=== PATIENT | male | born 1960 ===

== ENCOUNTER → 2021-06-11 13:46 | Outpatient (BNVA) | payer OTHER, SELFPAY | PROVIDERS: PCP Internal Medicine; Visit Provider Psychiatry & Neurology Neurology | DX: M54.2 Cervicalgia (principal); R51.9 Headache, unspecified; G89.29 Other chronic pain | CPT/HCPCS: 99212 ==

== ENCOUNTER → 2021-06-30 09:47 | Outpatient (BNVA) | payer OTHER, SELFPAY | PROVIDERS: PCP Internal Medicine; Visit Provider Internal Medicine | DX: M54.2 Cervicalgia (principal); M79.18 Myalgia, other site; R51.9 Headache, unspecified; G89.29 Other chronic pain | CPT/HCPCS: 99202 ==

== ENCOUNTER → 2022-06-05 09:46 | Outpatient (BNVA) | payer OTHER, SELFPAY | PROVIDERS: PCP Internal Medicine; Visit Provider Internal Medicine | DX: M79.18 Myalgia, other site (principal); M54.12 Radiculopathy, cervical region; M25.531 Pain in right wrist; M54.81 Occipital neuralgia; S16.1XXA Strain of muscle, fascia and tendon at neck level, initial encounter; G44.309 Post-traumatic headache, unspecified, not intractable; F09 Unspecified mental disorder due to known physiological condition; R53.1 Weakness; R20.0 Anesthesia of skin | CPT/HCPCS: 20553; 99212; J2795; J3301 ==

== ENCOUNTER → 2022-06-19 08:38 | Outpatient (BNVA) | payer OTHER, SELFPAY | PROVIDERS: PCP Internal Medicine; Visit Provider Internal Medicine | DX: Z13.89 Encounter for screening for other disorder (principal) ==

== ENCOUNTER 2022-06-29 10:49 | Outpatient (REF) | payer OTHER, SELFPAY ==
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
--- NOTE | ~2022-06-29 | XR_ITS ---
EXAMINATION: XR [id number] SCREENING CLINICAL INFORMATION: Pre-MRI screening. COMPARISON: None TECHNIQUE: 3 views of the orbits were obtained. FINDINGS: No radiopaque foreign body. No acute osseous abnormality. No concerning lytic or blastic osseous lesion. No abnormal soft tissue calcification. XR/XR pre mri screening IMPRESSION: No radiopaque foreign body.
== END 2022-06-29 10:50 | disposition home or self-care (01) ==
LOC: HO.MRI 10:49
PROVIDERS: Visit Provider Internal Medicine
DX: M54.12 Radiculopathy, cervical region (principal)
CPT/HCPCS: 72141

== ENCOUNTER → 2022-07-01 12:45 | Outpatient (BNVA) | payer OTHER, SELFPAY | PROVIDERS: Visit Provider Orthopaedic Surgery | DX: R20.0 Anesthesia of skin (principal); R29.898 Other symptoms and signs involving the musculoskeletal system | CPT/HCPCS: 99202 ==

== ENCOUNTER 2022-07-17 11:15 | Outpatient (REF) | payer OTHER, SELFPAY ==
--- NOTE | ~2022-07-17 | US_ITS ---
EXAMINATION: US CHEST CLINICAL INFORMATION: Upper back lump. COMPARISON: None. TECHNIQUE: Targeted ultrasound examination. FINDINGS: Targeted ultrasound examination was performed where patient demonstrated a mid upper back right-sided mass. There is a solid slightly heterogeneous and hypoechoic to isoechoic well-circumscribed oval structure measuring 4.2 x 0.9 x 2.9 cm in size. There is no internal vascularity. The lesion is longer than it is wide. There is mild distal sound enhancement and no distal sound shadowing. This has the appearance of a lipoma. US/US chest IMPRESSION: Right upper back lump corresponds to a lipoma with no cystic component.
== END 2022-07-17 11:16 | disposition home or self-care (01) ==
LOC: HO.US 11:15
PROVIDERS: PCP Internal Medicine; Visit Provider Internal Medicine
DX: M79.89 Other specified soft tissue disorders (principal); M54.81 Occipital neuralgia; M79.18 Myalgia, other site; Z79.01 Long term (current) use of anticoagulants; Z79.899 Other long term (current) drug therapy
CPT/HCPCS: 76604; 99212

== ENCOUNTER → 2022-07-20 15:45 | Outpatient (BNVA) | payer OTHER, SELFPAY | PROVIDERS: Visit Provider Internal Medicine | DX: D17.1 Benign lipomatous neoplasm of skin and subcutaneous tissue of trunk (principal); M48.02 Spinal stenosis, cervical region; M54.81 Occipital neuralgia | CPT/HCPCS: 20552; 64405; 64450; 99212 ==

== ENCOUNTER 2022-08-06 16:06 | Outpatient (REF) | payer OTHER, SELFPAY ==
--- NOTE | ~2022-08-06 | US_ITS ---
EXAMINATION: US CHEST CLINICAL INFORMATION: Cyst right upper back. COMPARISON: None available. TECHNIQUE: Limited ultrasound imaging through the right upper back is performed. FINDINGS: There is a focal hypoechoic area without vascularity in the right upper back measuring 4.2 x 2.9 x 0.9 cm. There is no cystic consistency. It appears somewhat similar to surrounding fat. US/US chest IMPRESSION: Deep to subcutaneous soft tissues is a oval lesion measuring 4.2 cm corresponding to the patient's palpable lesion in right upper back. 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
== END 2022-08-06 16:07 | disposition home or self-care (01) ==
LOC: HO.US 16:06
PROVIDERS: Visit Provider Internal Medicine
DX: M79.89 Other specified soft tissue disorders (principal)
CPT/HCPCS: 76604

== ENCOUNTER → 2022-08-11 13:46 | Outpatient (BNVA) | payer OTHER, SELFPAY | PROVIDERS: PCP Internal Medicine; Visit Provider Surgery | DX: D17.1 Benign lipomatous neoplasm of skin and subcutaneous tissue of trunk (principal) | CPT/HCPCS: 99212 ==

== ENCOUNTER 2022-08-27 14:01 | Outpatient (REF) | payer OTHER, SELFPAY ==
--- NOTE | 2022-08-27 14:35 | P.OP_ITS ---
Operative Note Operative Note Date of Service: 08/27/22 Narrative: Preoperative diagnosis: Lipoma right back Postoperative diagnosis: same Procedure: excision of lipoma right back Surgeon: Talib Bhat MD Damage Inside Adjuster: none Anesthesia: Sensorcaine 0.5% with epinephrine Indications for procedure: 61-year-old male patient presenting with a soft tissue mass measuring 3 cm in diameter consistent with a lipoma located in the right mid back Operative findings: 3 cm lipoma of the right mid back Specimen: lipoma right mid back Estimated blood loss: 2 mL Complications: none Procedure details: patient was brought to the minor surgery suite placed in a supine position. The site of surgery was confirmed by the patient in the right mid back. After assuring informed consent the skin was prepped with Betadine and draped in a sterile fashion. Local anesthesia was infiltrated over the lipoma and an incision made with a 15 blade transverse fashion. Incision was carried out through subcutaneous tissue up to the palpable lipoma. Sharp dissection was then used to dissect the lipoma from the surrounding subcutaneous tissue. The lesion was completely excised and sent to pathology for further examination. Hemostasis was assured using light pressure. Dermis was then r eapproximated using interrupted 3-0 Polysorb sutures. Skin was closed using a running subcuticular 4-0 Polysorb suture. Steri-Strips, 2 x 2 gauze and Tegaderm were then applied. The patient tolerated the procedure well. He was discharged to home in stable condition.
[2022-08-27 14:46] VITALS: BP 134/72; PULSE 70; RESP 16; TEMP 36.9; O2SAT 98
[2022-08-27 14:47] VITALS: BMI 30.4
== END 2022-08-27 14:02 | disposition home or self-care (01) ==
LOC: HO.MS 14:01
PROVIDERS: Visit Provider Surgery
PROC: (CPT 11403; principal; 2022-08-27 14:40)
DX: D17.1 Benign lipomatous neoplasm of skin and subcutaneous tissue of trunk (principal)
CPT/HCPCS: 11403; 88304

== ENCOUNTER → 2022-09-03 09:47 | Outpatient (BNVA) | payer OTHER, SELFPAY | PROVIDERS: PCP Internal Medicine; Visit Provider Surgery | DX: L76.31 Postprocedural hematoma of skin and subcutaneous tissue following a dermatologic procedure (principal) | CPT/HCPCS: 10140; 99212 ==

== ENCOUNTER → 2022-09-11 08:54 | Outpatient (BNVA) | payer OTHER, SELFPAY | PROVIDERS: PCP Internal Medicine; Visit Provider Surgery | DX: Z13.89 Encounter for screening for other disorder (principal) ==

== ENCOUNTER 2022-09-16 14:00 | Outpatient (RCR) | payer OTHER, SELFPAY ==
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
--- NOTE | 2022-09-28 11:53 | MHC.OT.DC ---
[address] [phone] F: [phone] Occupational Therapy Discharge Note Patient Name: Honorio Calderon I Provider: Nette Meade Diagnosis: B/L HAND WEAKNESS AND NUMBNESS Date of Evaluation: 08/28/22 Date of Discharge: 09/28/22 Treatments to Date: 4 Cancellations to Date: 2 No Shows to Date: 3 Discharge Status: Patient Elected to Stop Discharge Summary: MR CALDERON WAS SEEN FOR FOUR OT RX SESSIONS. HE WAS PROVIDED WITH A PHONE RECORDING HEP TO INCREASE EASE AND CARRYOVER OF THER EX. HE DEMO IMPROVED ROM OF HAND, WELL COORDINATION DURING HIS TIME IN THERAPY - YET HE WAS SLOW AND GUARDED. Pt HAS ELECTED TO DISCONTINUE OT AT [facility]. Electronically Signed By: LULU JUARES/Anabela Reviewed/agree with student documentation: N/A Therapist: Please Sign and return to therapist, thank you for your referral.
== END 2022-09-28 11:50 | disposition home or self-care (01) ==
LOC: HO.OT 14:00
PROVIDERS: Visit Provider Orthopaedic Surgery
DX: R20.0 Anesthesia of skin (principal); R29.898 Other symptoms and signs involving the musculoskeletal system
CPT/HCPCS: 97110; 97167

== ENCOUNTER → 2022-09-25 10:57 | Outpatient (BNVA) | payer OTHER, SELFPAY | PROVIDERS: PCP Internal Medicine; Visit Provider Internal Medicine | DX: M79.18 Myalgia, other site (principal); M54.81 Occipital neuralgia; S16.1XXA Strain of muscle, fascia and tendon at neck level, initial encounter | CPT/HCPCS: 20552; 64405; 64450; 99212 ==

== ENCOUNTER → 2022-11-13 11:15 | Outpatient (BNVA) | payer OTHER, SELFPAY | PROVIDERS: PCP Internal Medicine; Visit Provider Registered Nurse Emergency | DX: M48.02 Spinal stenosis, cervical region (principal); M54.12 Radiculopathy, cervical region; M54.81 Occipital neuralgia | CPT/HCPCS: 99212 ==

== ENCOUNTER → 2022-11-20 11:38 | Outpatient (BNVA) | payer OTHER, SELFPAY | PROVIDERS: PCP Internal Medicine; Visit Provider Internal Medicine | DX: M79.18 Myalgia, other site (principal); M48.02 Spinal stenosis, cervical region; M54.81 Occipital neuralgia; S16.1XXA Strain of muscle, fascia and tendon at neck level, initial encounter | CPT/HCPCS: 20553; 64405; 64450; 99212; J2795; J3301 ==

== ENCOUNTER 2023-01-18 12:48 | Outpatient (AMB) | payer OTHER, SELFPAY ==
[2023-01-18 13:48] VITALS: BP 128/62; PULSE 65; RESP 14; O2SAT 99
--- NOTE | 2023-01-18 13:48 | A.OFFVIS_ITS ---
Intake Vital Signs 01/18/23 13:48 Height 5 ft 7 in BP 128/62 Blood Pressure Location Lt brachial Position Sitting Respiration 14 Pulse 65 Pulse Source Pulse Oximeter Pulse Oximetry (%) 99 Oxygen Delivery Method Room Air Intake Visit Reasons: botox discussion Allergies lisinopril Adverse Reaction (Severe, Verified 01/18/23 13:49) cough isosorbide Adverse Reaction (Intermediate, Verified 01/18/23 13:49) Cough Medication List - Last Reconciled 01/18/23 by Prema Phelps LPN acetaminophen 500 mg PO Q6H PRN ammonium lactate 12% 1 appl topical DAILY aspirin 81 mg PO DAILY budesonide-formoterol 160-4.5 mcg/actuation (Symbicort) 1 inh inhalation BID cetirizine 10 mg PO DAILY PRN clonazepam 0.5 mg PO BID PRN clonidine HCl 0.1 mg PO BEDTIME cyclobenzaprine 10 mg (2 x 5 mg) PO BEDTIME diclofenac sodium 1% (Arthritis Pain (diclofenac)) 2 grams topical QID diclofenac sodium 1% (Arthritis Pain (diclofenac)) 4 grams topical QID duloxetine 60 mg PO BID fluvoxamine ER 200 mg PO BEDTIME hydrochlorothiazide 25 mg PO DAILY levetiracetam 500 mg PO BID losartan 50 mg PO DAILY metformin 500 mg PO DAILY metoprolol succinate ER (Toprol XL) 50 mg PO DAILY pantoprazole 40 mg PO DAILY prazosin 2 mg PO BEDTIME pregabalin 150 mg PO TID sertraline 150 mg PO QAM sucralfate 1 g PO QID warfarin 5 mg PO 4XW warfarin 2.5 mg PO 3XW HPI botox discussion HPI Details 62-year-old male is presenting today for possible repeat trigger point injections. He reports pain in his mid-back region. He had an excision of a lipoma on 08/27/22 and tolerated the procedure well. He has been going for occupational therapy at [facility] and is interested in commencing physical therapy for his neck and back pain as well. He was turned down at [facility] due to lack of acceptance of worker's comp insurance. The patient reports two episodes of lightheadedness while standing up in recent weeks. He also reports occasional gait imbalance secondary to feeling lightheaded. He has been using Symbicort for the past two weeks and reports improvement in some chest symptoms that he had prior to that. He also reports pain in his bilateral hips that has responded well to trigger point injections in the past. He requests that the same be repeated today. He would also like to repeat trigger point injections to his neck and occipital nerve block in the future. 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 Past procedures: 11/20/22: Trigger point injections: >50% relief. 11/20/22: Greater and lesser occipital nerve block: >70% relief. 09/25/2022: Greater and Lesser Occipital Nerve Block, Bilateral: >80% relief for 2 weeks. 09/25/2022: Trigger point injections, lumbar paraspinal muscles: 50% relief for a few days 07/20/2022: Greater and Lesser Occipital Nerve Block, Bilateral: >80% relief for 2 weeks. 07/20/2022: Trigger point injections, lumbar paraspinal muscles: 50% relief for a few days. [facility] Medical History (Updated 01/18/23 @ 14:07 by Catrachito Covarrubias MD) Aortic aneurysm Bicuspid aortic valve Cervicalgia Chronic headaches Coronary artery disease Diabetes Diabetes with retinopathy Emphysema lung HTN (hypertension) Low back pain Myofascial pain dysfunction syndrome Obstructive sleep apnea Prostate cancer Seizures Surgical History Aortic valve replaced H/O heart surgery S/P excision of lipoma (08/27/22) Family History Mother No problems noted. Father No problems noted. Social History Alcohol intake: never Patient Tobacco Use Status: Former Tobacco user Quit Date: 1999 Current occupational status: employed Current occupation: patient transport/rt hand Review of Systems Const All systems reviewed & are unremarkable except as noted in HPI and below Physical Exam Vital Signs: Last Vital Signs Pulse 65 01/18/23 13:48 Resp 14 01/18/23 13:48 BP 128/62 01/18/23 13:48 Pulse Ox 99 01/18/23 13:48 Oxygen Delivery Method Room Air 01/18/23 13:48 General: Appears afebrile. Alert and oriented. Mood and affect appropriate. Follows and participates in conversation appropriately. Respiratory effort is unlabored. Able to transition from sit to stand unassisted. Ambulates with bilaterally normal heel strike and toe off. Office Procedures Injection Trigger Point Multi Trigger point injections, bilateral Pre-procedure diagnosis: Myofascial pain Post-procedure diagnosis: Myofascial pain Site and number of trigger points: latissimus dorsi and gluteus Medius, bilateral Solution: Total volume administered 10 ml (5 ml lidocaine 1% + 5 ml bupivacaine 0.25% + Kenalog 40 mg). The procedure, its benefits, and its risks were explained to the patient and all questions were answered. Prior to the start of the procedure, a ?time out? was performed to confirm correct patient, procedure, and laterality. Trigger points were identified by manual palpation and marked. The skin was cleaned with Chloraprep. A 1.5 inch 25 G needle was used. Each of the trigger points were approximated and elevated in the direction away from the body. Dry needling then took place for five seconds. Approximately 0.5 ml to 1 ml of injectate was delivered to the trigger point followed by dry needling for five seconds. This process was repeated at each trigger point site. The patient tolerated the procedure well. The patient tolerated the procedure well, without complication. The patient denied any numbness, paresthesias, or weakness. Post-procedure vitals were recorded as part of the nursing discharge note in electronic medical record. Following a period of observation, the patient was discharged in stable condition with written discharge instructions. Trigger Point Multiple: 61516- Trigger point injection =/>3 Results Reviewed Results Reviewed: No imaging is available for review. Assessment & Plan Assessment & Plan (1) Cervical spinal stenosis: Code(s): M48.02 - Spinal stenosis, cervical region (2) Intervertebral lumbar disc disorder: Code(s): M51.9 - Unspecified thoracic, thoracolumbar and lumbosacral intervertebral disc disorder (3) Lumbar spondylosis: Code(s): M47.816 - Spondylosis without myelopathy or radiculopathy, lumbar region Plan A referral was provided for physical therapy for neck and back pain. The patient will arrange appointment at [facility] on his own. The patient?s referral to the [facility] Neurosurgery Department was denied because they do not accept his insurance. A new referral was provided to the neurosurgery department at [facility] for further evaluation and discussion of possible surgical options with the patient upon his request. Patient is status post bilateral trigger point injections to his hips. Patient tolerated procedure well and was discharged home in stable condition with discharge instructions. All questions were answered. We will follow-up as needed for repeat trigger point injections. Scribed for Dr. Covarrubias by [place] medical services manager, on 01/18/2023. I, Dr. Covarrubias, have personally reviewed and agree with the information entered by the scribe. Orders: Orders PT Evaluation and Treatment 01/18/23 M47.816 - Spondylosis without myelopathy or radiculopathy, lumbar region, M48.02 - Spinal stenosis, cervical region, M51.9 - Unspecified thoracic, thoracolumbar and lumbosacral intervertebral disc disorder Referrals Neurosurgery Referral M48.02 - Spinal stenosis, cervical region Coding Level of Care Code Est Pt Level 4 (12799) Diagnoses Cervical spinal stenosis M48.02 Intervertebral lumbar disc disorder M51.9 Lumbar spondylosis M47.816 CPT Codes Details - Trigger Point Multiple: 65802- Trigger point injection =/>3 ([id number])
== END 2023-01-18 14:43 | disposition home or self-care (01) ==
PROVIDERS: PCP Internal Medicine; Visit Provider Internal Medicine
DX: M48.02 Spinal stenosis, cervical region (principal); M51.9 Unspecified thoracic, thoracolumbar and lumbosacral intervertebral disc disorder; M47.816 Spondylosis without myelopathy or radiculopathy, lumbar region
CPT/HCPCS: 20553; 99214

== ENCOUNTER → 2023-01-18 12:48 | Outpatient (BNVA) | payer OTHER, SELFPAY | PROVIDERS: PCP Internal Medicine; Visit Provider Internal Medicine | DX: M48.02 Spinal stenosis, cervical region (principal); M47.816 Spondylosis without myelopathy or radiculopathy, lumbar region; M51.9 Unspecified thoracic, thoracolumbar and lumbosacral intervertebral disc disorder | CPT/HCPCS: 20553; 99212; J3301 ==

== ENCOUNTER 2023-02-10 14:06 | Outpatient (REF) | payer OTHER, SELFPAY ==
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
== END 2023-02-10 14:07 | disposition home or self-care (01) ==
LOC: HO.NEURO 14:06
PROVIDERS: PCP Internal Medicine; Visit Provider Orthopaedic Surgery
DX: R20.0 Anesthesia of skin (principal); R20.2 Paresthesia of skin
CPT/HCPCS: 95886; 95911

== ENCOUNTER → 2023-02-10 14:09 | Outpatient (BNV) | payer OTHER, SELFPAY | PROVIDERS: PCP Internal Medicine; Visit Provider Physical Medicine & Rehabilitation | DX: R20.2 Paresthesia of skin (principal) | CPT/HCPCS: 95886; 95911 ==

== ENCOUNTER 2023-04-12 14:28 | Outpatient (AMB) | payer OTHER, SELFPAY ==
--- NOTE | 2023-04-12 14:30 | A.OFFVIS_ITS ---
Intake Vital Signs 04/12/23 14:31 Height 5 ft 7 in Weight 186 lb BMI 29.1 Blood Pressure Location Lt brachial Position Sitting Respiration 12 Pulse 75 Pulse Source Pulse Oximeter Pulse Oximetry (%) 98 Oxygen Delivery Method Room Air Intake Visit Reasons: increased pain questions about PT/conf Allergies lisinopril Adverse Reaction (Severe, Verified 04/12/23 14:32) cough isosorbide Adverse Reaction (Intermediate, Verified 04/12/23 14:32) Cough Medication List - Last Reconciled 04/12/23 by Prema Phelps LPN ammonium lactate 12% 1 appl topical DAILY aspirin 81 mg PO DAILY budesonide-formoterol 160-4.5 mcg/actuation (Symbicort) 1 inh inhalation BID cetirizine 10 mg PO DAILY PRN clonazepam 0.5 mg PO BID PRN clonidine HCl 0.1 mg PO BEDTIME cyclobenzaprine 10 mg (2 x 5 mg) PO BEDTIME duloxetine 60 mg PO BID fluvoxamine ER 200 mg PO BEDTIME levetiracetam 500 mg PO BID losartan 50 mg PO DAILY metformin 500 mg PO DAILY metoprolol succinate ER (Toprol XL) 50 mg PO DAILY pantoprazole 40 mg PO DAILY prazosin 2 mg PO BEDTIME sertraline 150 mg PO QAM sucralfate 1 g PO QID warfarin 5 mg PO 4XW warfarin 2.5 mg PO 3XW HPI increased pain questions about PT/conf HPI Details 62-year-old male who presents today to t he office for an evaluation of increased pain. He is not doing physical therapy due to a coverage denial from Worker [employer]. He reports pain in his neck and mid-back region. He has difficulty sleeping on his sides. He has pain in his arm. He reports occasional episodes of headaches. He has good relief from the last trigger point injection, he would like it repeated today. Past procedures: 01/18/23: Trigger point injections, bila teral: >50% relief. 11/20/22: Trigger point injections: >50% relief. 11/20/22: Greater and lesser occipital n erve block: >70% relief. 09/25/2022: Greater and Lesser Occipital Nerve Block, Bilateral: >80% relief for 2 weeks. 09/25/2022: Trigger point injections, sherrie mbar paraspinal muscles: 50% relief for a few days 07/20/2022: Greater and Lesser Occipital Nerve Block, Bilateral: >80% relief for 2 weeks. 07/20/2022: Trigger point injections, sherrie mbar paraspinal muscles: 50% relief for a few days. [facility] Medical History (Updated 04/12/23 @ 14:43 by Catrachito Covarrubias MD) Low back pain Myofascial pain dysfunction syndrome Coronary artery disease Prostate cancer Obstructive sleep apnea Seizures HTN (hypertension) Emphysema lung Diabetes with retinopathy Diabetes Bicuspid aortic valve Aortic aneurysm Chronic headaches Cervicalgia Surgical History Aortic valve replaced H/O heart surgery S/P excision of lipoma (08/27/22) Family History Mother No problems noted. Father No problems noted. Alcohol intake: never Patient Tobacco Use Status: Former Tobacco user Quit Date: 1999 Current occupational status: employed Current occupation: patient transport/rt hand Review of Systems Const All systems reviewed & are unremarkable except as noted in HPI and below Physical Exam Vital Signs: Last Vital Signs Pulse 75 04/12/23 14:31 Resp 12 04/12/23 14:31 Pulse Ox 98 04/12/23 14:31 Oxygen Delivery Method Room Air 04/12/23 14:31 BMI result Body Mass Index 29.1 General: Appears afebrile. Alert and oriented. Mood and affect appropriate. Follows and participates in conversation appropriately. Respiratory effort is unlabored. Able to transition from sit to stand unassisted. Ambulates with bilaterally normal heel strike and toe off. Office Procedures Injection Trigger Point Multi Pre-procedure diagnosis: Myofascial pain Post-procedure diagnosis: Myofascial pain Site and number of trigger points: Left trapezius, occipitalis, rhomboid. Solution: Total volume administered 10 ml (5 ml lidocaine 1% + 5 ml bupivacaine 0.25%). The procedure, its benefits, and its risks were explained to the patient and all questions were answered. A pulse oximeter monitor was attached and the patient was monitored throughout the procedure. Prior to the start of the procedure, a ?time out? was performed to confirm correct patient, procedure, and laterality. Trigger points were identified by manual palpation and marked. The skin was cleaned with Chloraprep. A 1.5 inch 25 G needle was used. Each of the trigger points were approximated and elevated in the direction away from the body. Dry needling then took place for five seconds. Approximately 0.5 ml to 1 ml of injectate was delivered to the trigger point followed by dry needling for five seconds. This process was repeated at each trigger point site. The patient tolerated the procedure well. The patient tolerated the procedure well, without complication. The patient denied any numbness, paresthesias, or weakness. Post-procedure vitals were recorded as part of the nursing discharge note in [facility] medical record. Following a period of observation, the patient was discharged in stable condition with written discharge instructions. Trigger Point Multiple: 13631- Trigger point injection =/>3 Nerve Block Details: Greater and Lesser Occipital Nerve Block, Left A physical exam was used to isolate the location of the targeted nerves. These injection sites were prepped with alcohol. Using a sterile technique, a 25 gauge 1.5-inch needle was introduced into each overlying nerve. A total of 3 mL 0.5% bupivacaine was injected around the left greater and lesser occipital nerves in a fan-like motion. Aspirations were negative for blood, CSF, and air prior to injection at all sites. The needle was removed, the skin cleansed and a sterile bandage was applied where needed. The patient tolerated the procedure well and no complications were encountered. Following the procedure the patient's vital signs were stable. He reported resolution of his preprocedure headache. The patient was discharged home in good condition with post-procedural instructions. Time Out: Immediately prior to the procedure, the following was verbally confirmed that there is a signed consent form and that the correct patient, planned procedure, site and side are consistent with documentation and that necessary equipment and/or blood products are available prior to the start of the case. Complications: none EBL: <5 cc. CPT: 04469-Eguhptj Occipital 18697 - Lesser Occipital Procedure code (CPT) selection complete Results Reviewed Results Reviewed: No imaging is available for review. Assessment & Plan Assessment & Plan (1) Dorsalgia of cervicothoracic region: Code(s): M54.2 - Cervicalgia; M54.6 - Pain in thoracic spine (2) Occipital neuralgia: Code(s): M54.81 - Occipital neuralgia (3) Cervical myofascial strain: Code(s): S16.1XXA - Strain of muscle, fascia and tendon at neck level, initial encounter Plan 62-year-old gentleman with a history of longstanding pain in his cervical and thoracic spine, exacerbated by his work injury. He is not a candidate for interventional procedures or surgical decompression. The only thing that he has been able to find helpful is physical therapy, and he would benefit from continued physical therapy to maintain and strengthen the mobility of his spinal musculature. A new referral was provided to the patient for physical therapy. ? Patient is status post left neck and shoulder trigger point injection and left occipital nerve block. Patient tolerated procedure well and was discharged home in stable condition with discharge instructions. All questions were answered. We will follow-up in clinic to assess response to therapy and repeat as needed. Scribed for Dr. Covarrubias by El Rayo, medical surgery nurse, on 04/12/2023. I, Dr. Covarrubias, have personally reviewed and agree with the information entered by the scribe. Orders: Orders PT Evaluation and Treatment 04/12/23 M48.02 - Spinal stenosis, cervical region, M54.2 - Cervicalgia, M54.6 - Pain in thoracic spine Coding Level of Care Code Est Pt Level 4 (68418) Diagnoses Dorsalgia of cervicothoracic region M54.2; M54.6 Occipital neuralgia M54.81 Cervical myofascial strain S16.1XXA CPT Codes Details - Trigger Point Multiple: 20571- Trigger point injection =/>3 ([id number]) Nerve Block - CPT: 01595-Pdupppu Occipital ([id number]) Nerve Block - Nerve Block 9: 33574 - Lesser Occipital ([id number])
[2023-04-12 14:31] VITALS: PULSE 75; RESP 12; O2SAT 98; BMI 29.1
== END 2023-04-12 14:51 | disposition home or self-care (01) ==
PROVIDERS: PCP Internal Medicine; Visit Provider Internal Medicine
DX: M54.2 Cervicalgia (principal); M54.81 Occipital neuralgia; S16.1XXA Strain of muscle, fascia and tendon at neck level, initial encounter
CPT/HCPCS: 20553; 64405; 64450; 99214

== ENCOUNTER → 2023-04-12 14:28 | Outpatient (BNVA) | payer OTHER, SELFPAY | PROVIDERS: PCP Internal Medicine; Visit Provider Internal Medicine | DX: M54.2 Cervicalgia (principal); M54.81 Occipital neuralgia; S16.1XXA Strain of muscle, fascia and tendon at neck level, initial encounter; M79.18 Myalgia, other site | CPT/HCPCS: 20553; 64405; 64450; 99212; J0665 ==

== ENCOUNTER 2023-06-04 10:30 | Outpatient (AMB) | payer OTHER, SELFPAY ==
--- NOTE | 2023-06-04 10:43 | A.OFFVIS_ITS ---
Intake Vital Signs 06/04/23 10:45 Height 5 ft 7 in Weight 181 lb BMI 28.3 BP 110/64 Blood Pressure Location Lt brachial Position Sitting Respiration 12 Pulse 74 Pulse Source Pulse Oximeter Pulse Oximetry (%) 99 Oxygen Delivery Method Room Air Intake Visit Reasons: FU/Increased Pain/lvm Allergies lisinopril Adverse Reaction (Severe, Verified 06/04/23 10:48) cough isosorbide Adverse Reaction (Intermediate, Verified 06/04/23 10:48) Cough HPI FU/Increased Pain/lvm HPI Details 62-year-old male who presents today to t he office for an increased pain. He reports pain in his neck and mid-back region. He reports having weakness and heaviness in his hands. He has a Worker Compensation insurance. He requested a new referral for different neurosurgeon. He states that [facility] has not reached out to him. He is currently on Coumadin. He has been attending for physical therapy. He had a nerve conduction study on 02/10/23 which was unremarkable. Past procedures: 04/12/23: left neck and shoulder trigger point injection: 40-50% relief. 04/12/23: Greater and Lesser Occipital N erve Block, Left: 40-50% relief. 01/18/23: Trigger point injections, bila teral: >50% relief. 11/20/22: Trigger point injections: >50% relief. 11/20/22: Greater and lesser occipital n erve block: >70% relief. 09/25/2022: Greater and Lesser Occipital Nerve Block, Bilateral: >80% relief for 2 weeks. 09/25/2022: Trigger point injections, sherrie mbar paraspinal muscles: 50% relief for a few days 07/20/2022: Greater and Lesser Occipital Nerve Block, Bilateral: >80% relief for 2 weeks. 07/20/2022: Trigger point injections, sherrie mbar paraspinal muscles: 50% relief for a few days. [facility] Medical History (Updated 04/12/23 @ 14:43 by Catrachito Covarrubias MD) Low back pain Myofascial pain dysfunction syndrome Coronary artery disease Prostate cancer Obstructive sleep apnea Seizures HTN (hypertension) Emphysema lung Diabetes with retinopathy Diabetes Bicuspid aortic valve Aortic aneurysm Chronic headaches Cervicalgia Surgical History Aortic valve replaced H/O heart surgery S/P excision of lipoma (08/27/22) Family History Mother No problems noted. Father No problems noted. Social History Alcohol intake: never Patient Tobacco Use Status: Former Tobacco user Quit Date: 1999 Current occupational status: employed Current occupation: patient transport/rt hand Review of Systems Const All systems reviewed & are unremarkable except as noted in HPI and below Physical Exam Vital Signs: Last Vital Signs Pulse 74 06/04/23 10:45 Resp 12 06/04/23 10:45 BP 110/64 06/04/23 10:45 Pulse Ox 99 06/04/23 10:45 Oxygen Delivery Method Room Air 06/04/23 10:45 BMI result Body Mass Index 28.3 General: Appears afebrile. Alert and oriented. Mood and affect appropriate. Follows and participates in conversation appropriately. Respiratory effort is unlabored. Able to transition from sit to stand unassisted. Ambulates with bilaterally normal heel strike and toe off. Results Reviewed Results Reviewed: Upper extremity EMG/NCS FINDINGS: All motor and sensory nerves tested showed normal latencies, amplitudes and conduction velocities. Concentric needle EMG was performed in selected muscles of the bilateral upper extremities. Study did not reveal signs of electric abnormalities as shown in the table below. IMPRESSION: 1. This is a normal study. 2. There is no electrodiagnostic evidence for median neuropathy, ulnar neuropathy, brachial plexopathy, or cervical radiculopathy. Assessment & Plan Assessment & Plan (1) Cervical spinal stenosis: Code(s): M48.02 - Spinal stenosis, cervical region Plan The patient will continue his physical therapy. He has not heard back from the [facility] neurosurgery department. A referral was provided to [facility] to see if he can get an appointment with them to discuss his case. Although his EMG study is within normal limits, he complains of significant weakness in his hands and has multilevel moderate to severe foraminal stenoses. Follow-up as needed. Scribed for Dr. Covarrubias by El Rayo, medical transcription supervisor, on 06/04/2023. I, Dr. Covarrubias, have personally reviewed and agree with the information entered by the scribe. Orders: Referrals Neurosurgery Referral M48.02 - Spinal stenosis, cervical region Coding Level of Care Code Est Pt Level 3 (73715) Diagnoses Cervical spinal stenosis M48.02
[2023-06-04 10:45] VITALS: BP 110/64; PULSE 74; RESP 12; O2SAT 99; BMI 28.3
== END 2023-06-04 11:44 | disposition home or self-care (01) ==
PROVIDERS: PCP Internal Medicine; Visit Provider Internal Medicine
DX: M48.02 Spinal stenosis, cervical region (principal)
CPT/HCPCS: 99213

== ENCOUNTER → 2023-06-04 10:30 | Outpatient (BNVA) | payer OTHER, SELFPAY | PROVIDERS: PCP Internal Medicine; Visit Provider Internal Medicine | DX: M48.02 Spinal stenosis, cervical region (principal) | CPT/HCPCS: 99212 ==

== ENCOUNTER 2023-08-27 09:17 | Outpatient (AMB) | payer OTHER, SELFPAY ==
--- NOTE | 2023-08-27 09:23 | MHC.OFFVIS ---
Vital Signs 08/27/23 09:24 Height 5 ft 7 in Weight 184 lb BMI 28.8 BP 127/60 Blood Pressure Location Lt brachial Position Sitting Respiration 12 Pulse 65 Pulse Source Pulse Oximeter Pulse Oximetry (%) 97 Oxygen Delivery Method Room Air Intake Visit Reasons: Head & Neck Pain Allergies lisinopril Adverse Reaction (Severe, Verified 08/27/23 09:25) cough isosorbide Adverse Reaction (Intermediate, Verified 08/27/23 09:25) Cough Medication List - Last Reconciled 08/27/23 by Prema Phelps LPN ammonium lactate 12% 1 appl topical DAILY aspirin 81 mg PO DAILY budesonide-formoterol 160-4.5 mcg/actuation (Symbicort) 1 inh inhalation BID cetirizine 10 mg PO DAILY PRN clonazepam 0.5 mg PO BID PRN clonidine HCl 0.1 mg PO BEDTIME cyclobenzaprine 10 mg (2 x 5 mg) PO BEDTIME duloxetine 60 mg PO BID fluvoxamine ER 200 mg PO BEDTIME losartan 50 mg PO DAILY metformin 500 mg PO DAILY metoprolol succinate ER (Toprol XL) 50 mg PO DAILY pantoprazole 40 mg PO DAILY prazosin 2 mg PO BEDTIME sertraline 150 mg PO QAM sucralfate 1 g PO QID warfarin 5 mg PO 4XW warfarin 2.5 mg PO 3XW HPI HPI Head & Neck Pain: Details: 62-year-old male who presents today to the office for an evaluation of head and neck pain. He has been doing physical therapy with good relief. He still continues to experience neck, back, and shoulder pain. He has not tried TENS units in the past. He requested a refill of the medication. He reports having SOB with mild exertion. He has also reported this to his primary care physician. Past procedures: 04/12/23: left neck and shoulder trigger point injection: 40-50% relief. 04/12/23: Greater and Lesser Occipital Nerve Block, Left: 40-50% relief. 01/18/23: Trigger point injections, bilateral: >50% relief. 11/20/22: Trigger point injections: >50% relief. 11/20/22: Greater and lesser occipital nerve block: >70% relief. 09/25/2022: Greater and Lesser Occipital Nerve Block, Bilateral: >80% relief for 2 weeks. 09/25/2022: Trigger point injections, lumbar paraspinal muscles: 50% relief for a few days 07/20/2022: Greater and Lesser Occipital Nerve Block, Bilateral: >80% relief for 2 weeks. 07/20/2022: Trigger point injections, lumbar paraspinal muscles: 50% relief for a few days. [facility] Medical History (Updated 04/12/23 @ 14:43 by Catrachito Covarrubias MD) Low back pain Myofascial pain dysfunction syndrome Coronary artery disease Prostate cancer Obstructive sleep apnea Seizures HTN (hypertension) Emphysema lung Diabetes with retinopathy Diabetes Bicuspid aortic valve Aortic aneurysm Chronic headaches Cervicalgia Surgical History Aortic valve replaced H/O heart surgery S/P excision of lipoma (08/27/22) Family History Mother No problems noted. Father No problems noted. Social History Alcohol intake: never Patient Tobacco Use Status: Former Tobacco user Quit Date: 1999 Current occupational status: employed Current occupation: patient transport/rt hand Review of Systems Const All systems reviewed & are unremarkable except as noted in HPI and below Physical Exam Vital Signs: Last Vital Signs Pulse 65 08/27/23 09:24 Resp 12 08/27/23 09:24 BP 127/60 08/27/23 09:24 Pulse Ox 97 08/27/23 09:24 Oxygen Delivery Method Room Air 08/27/23 09:24 BMI result Body Mass Index 28.8 General: Appears afebrile. Alert and oriented. Mood and affect appropriate. Follows and participates in conversation appropriately. Respiratory effort is unlabored. Able to transition from sit to stand unassisted. Ambulates with bilaterally normal heel strike and toe off. Results Reviewed Results Reviewed: No imaging is available for review. Assessment & Plan Assessment & Plan (1) Dorsalgia of cervicothoracic region: Code(s): M54.2 - Cervicalgia; M54.6 - Pain in thoracic spine Category: Medical (2) Cervical spinal stenosis: Code(s): M48.02 - Spinal stenosis, cervical region Category: Medical Plan A referral was provided to physical therapy. The patient will schedule an appointment at his previous provider. I recommended trying TENS units for his pain in educated him about the therapy. He will buy it at a local pharmacy. The patient will follow up as needed. Scribed for Dr. Covarrubias by El Rayo, biomedical field service engineer, on 08/27/2023. I, Dr. Covarrubias, have personally reviewed and agree with the information entered by the scribe. Orders: Orders PT Evaluation and Treatment 08/27/23 M54.2 - Cervicalgia, M54.6 - Pain in thoracic spine, M48.02 - Spinal stenosis, cervical region
[2023-08-27 09:24] VITALS: BP 127/60; PULSE 65; RESP 12; O2SAT 97; BMI 28.8
== END 2023-08-27 09:58 | disposition home or self-care (01) ==
PROVIDERS: PCP Internal Medicine; Visit Provider Internal Medicine
DX: M54.2 Cervicalgia (principal); M54.6 Pain in thoracic spine; M48.02 Spinal stenosis, cervical region
CPT/HCPCS: 99213

== ENCOUNTER → 2023-08-27 09:17 | Outpatient (BNVA) | payer OTHER, SELFPAY | PROVIDERS: PCP Internal Medicine; Visit Provider Internal Medicine | DX: M54.2 Cervicalgia (principal); M54.6 Pain in thoracic spine; M48.02 Spinal stenosis, cervical region | CPT/HCPCS: 99212 ==

== ENCOUNTER 2023-11-22 09:17 | Outpatient (AMB) | payer OTHER, SELFPAY ==
[2023-11-22 09:27] VITALS: BP 160/86; PULSE 61; O2SAT 98; BMI 29.6
--- NOTE | 2023-11-22 09:27 | MHC.OFFVIS ---
Vital Signs 11/22/23 09:27 Height 5 ft 7 in Weight 189 lb BMI 29.6 BP 160/86 H Blood Pressure Location Lt brachial Position Sitting Pulse 61 Pulse Source Pulse Oximeter Pulse Oximetry (%) 98 Oxygen Delivery Method Room Air Intake Visit Reasons: Shoulder, Back and Waist Pain Allergies lisinopril Adverse Reaction (Severe, Verified 11/22/23 09:28) cough isosorbide Adverse Reaction (Intermediate, Verified 11/22/23 09:28) Cough HPI HPI Shoulder, Back and Waist Pain: Details: 62-year-old male who presents today to the office for a shoulder, back, and waist pain. He reports radiating pain from his neck to shoulders and down to shoulder blades. He has limited shoulder ROM. He recently completed physical therapy for neck pain. He also reports back pain that is localized in the waist and radiates down. He has difficulty walking. He has not tried physical therapy for back pain. He is interested in trying physical therapy first. Past procedures: 04/12/23: left neck and shoulder trigger point injection: 40-50% relief. 04/12/23: Greater and Lesser Occipital Nerve Block, Left: 40-50% relief. 01/18/23: Trigger point injections, bilateral: >50% relief. 11/20/22: Trigger point injections: >50% relief. 11/20/22: Greater and lesser occipital nerve block: >70% relief. 09/25/2022: Greater and Lesser Occipital Nerve Block, Bilateral: >80% relief for 2 weeks. 09/25/2022: Trigger point injections, lumbar paraspinal muscles: 50% relief for a few days 07/20/2022: Greater and Lesser Occipital Nerve Block, Bilateral: >80% relief for 2 weeks. 07/20/2022: Trigger point injections, lumbar paraspinal muscles: 50% relief for a few days. [facility] Medical History (Updated 11/22/23 @ 09:37 by Catrachito Covarrubias MD) Low back pain Myofascial pain dysfunction syndrome Coronary artery disease Prostate cancer Obstructive sleep apnea Seizures HTN (hypertension) Emphysema lung Diabetes with retinopathy Diabetes Bicuspid aortic valve Aortic aneurysm Chronic headaches Cervicalgia Surgical History Aortic valve replaced H/O heart surgery S/P excision of lipoma (08/27/22) Family History Mother No problems noted. Father No problems noted. Social History Alcohol intake: never Patient Tobacco Use Status: Former Tobacco user Current occupational status: employed Current occupation: patient transport/rt hand Review of Systems Const All systems reviewed & are unremarkable except as noted in HPI and below Physical Exam Vital Signs: Last Vital Signs Pulse 61 11/22/23 09:27 BP 160/86 H 11/22/23 09:27 Pulse Ox 98 11/22/23 09:27 Oxygen Delivery Method Room Air 11/22/23 09:27 BMI result Body Mass Index 29.6 General: Appears afebrile. Alert and oriented. Mood and affect appropriate. Follows and participates in conversation appropriately. Respiratory effort is unlabored. Able to transition from sit to stand unassisted. Ambulates with bilaterally normal heel strike and toe off. Shoulder extension is limited to 90 degrees on both sides, so further extension beyond that reproduces pain. Results Reviewed Results Reviewed: No imaging is available for review. Assessment & Plan Assessment & Plan (1) Lumbar spondylosis: Code(s): M47.816 - Spondylosis without myelopathy or radiculopathy, lumbar region Category: Medical (2) Intervertebral lumbar disc disorder: Code(s): M51.9 - Unspecified thoracic, thoracolumbar and lumbosacral intervertebral disc disorder Category: Medical (3) Rotator cuff dysfunction: Comment: bilateral Code(s): M67.919 - Unspecified disorder of synovium and tendon, unspecified shoulder Category: Medical Plan A referral was provided to physical therapy for low back and shoulder pains. The patient will receive a call to schedule an appointment. The patient will follow up in four weeks to assess response to physical therapy and consideration of trigger point injections. At that time, we can also consider injection to bilateral rotator cuffs with 25 gauge needle to minimize the risk of bleeding. Scribed for Dr. Covarrubias by El Rayo, medical transcriptionist, on 11/22/2023. I, Dr. Covarrubias, have personally reviewed and agree with the information entered by the scribe. Orders: Orders PT Evaluation and Treatment 11/22/23 M47.816 - Spondylosis without myelopathy or radiculopathy, lumbar region, M51.9 - Unspecified thoracic, thoracolumbar and lumbosacral intervertebral disc disorder, M67.919 - Unspecified disorder of synovium and tendon, unspecified shoulder Coding Level of Care Code Est Pt Level 3 (22973) Diagnoses Lumbar spondylosis M47.816 Intervertebral lumbar disc disorder M51.9 Rotator cuff dysfunction M67.919
== END 2023-11-22 09:42 | disposition home or self-care (01) ==
PROVIDERS: PCP Internal Medicine; Visit Provider Internal Medicine
DX: M47.816 Spondylosis without myelopathy or radiculopathy, lumbar region (principal); M51.9 Unspecified thoracic, thoracolumbar and lumbosacral intervertebral disc disorder; M67.919 Unspecified disorder of synovium and tendon, unspecified shoulder
CPT/HCPCS: 99213

== ENCOUNTER → 2023-11-22 09:17 | Outpatient (BNVA) | payer OTHER, SELFPAY | PROVIDERS: PCP Internal Medicine; Visit Provider Internal Medicine | DX: M47.816 Spondylosis without myelopathy or radiculopathy, lumbar region (principal); M51.9 Unspecified thoracic, thoracolumbar and lumbosacral intervertebral disc disorder; M67.911 Unspecified disorder of synovium and tendon, right shoulder; M67.912 Unspecified disorder of synovium and tendon, left shoulder | CPT/HCPCS: 99212 ==

== ENCOUNTER 2023-12-22 09:28 | Outpatient (AMB) | payer OTHER, SELFPAY ==
[2023-12-22 10:26] VITALS: BP 107/60; PULSE 62; RESP 14; O2SAT 98; BMI 29.6
--- NOTE | 2023-12-22 10:26 | MHC.OFFVIS ---
Vital Signs 12/22/23 10:26 Height 5 ft 7 in Weight 189 lb BMI 29.6 BP 107/60 Blood Pressure Location Lt brachial Position Sitting Respiration 14 Pulse 62 Pulse Source Pulse Oximeter Pulse Oximetry (%) 98 Oxygen Delivery Method Room Air Intake Visit Reasons: rojas shoulder inj Allergies lisinopril Adverse Reaction (Severe, Verified 11/22/23 09:28) cough isosorbide Adverse Reaction (Intermediate, Verified 11/22/23 09:28) Cough HPI HPI rojas shoulder inj: Details: 62-year-old male who presents to the office for bilateral shoulder injections Denies any recent cough, cold, infection, fever or other significant changes in medical history since last office visit. Past procedures: 04/12/23: left neck and shoulder trigger point injection: 40-50% relief. 04/12/23: Greater and Lesser Occipital Nerve Block, Left: 40-50% relief. 01/18/23: Trigger point injections, bilateral: >50% relief. 11/20/22: Trigger point injections: >50% relief. 11/20/22: Greater and lesser occipital nerve block: >70% relief. 09/25/2022: Greater and Lesser Occipital Nerve Block, Bilateral: >80% relief for 2 weeks. 09/25/2022: Trigger point injections, lumbar paraspinal muscles: 50% relief for a few days 07/20/2022: Greater and Lesser Occipital Nerve Block, Bilateral: >80% relief for 2 weeks. 07/20/2022: Trigger point injections, lumbar paraspinal muscles: 50% relief for a few days. [facility] Medical History (Updated 11/22/23 @ 09:37 by Catrachito Covarrubias MD) Low back pain Myofascial pain dysfunction syndrome Coronary artery disease Prostate cancer Obstructive sleep apnea Seizures HTN (hypertension) Emphysema lung Diabetes with retinopathy Diabetes Bicuspid aortic valve Aortic aneurysm Chronic headaches Cervicalgia Surgical History Aortic valve replaced H/O heart surgery S/P excision of lipoma (08/27/22) Family History Mother No problems noted. Father No problems noted. Social History Alcohol intake: never Patient Tobacco Use Status: Former Tobacco user Current occupational status: employed Current occupation: patient transport/rt hand Review of Systems Const All systems reviewed & are unremarkable except as noted in HPI and below Physical Exam Vital Signs: Last Vital Signs Pulse 62 12/22/23 10:26 Resp 14 12/22/23 10:26 BP 107/60 12/22/23 10:26 Pulse Ox 98 12/22/23 10:26 Oxygen Delivery Method Room Air 12/22/23 10:26 BMI result Body Mass Index 29.6 General: Appears afebrile. Alert and oriented. Mood and affect appropriate. Follows and participates in conversation appropriately. Respiratory effort is unlabored. Able to transition from sit to stand unassisted. Office Procedures Joint Injection/Aspiration Joint Injection/Aspiration Details: Bilateral subacromial bursa injections under ultrasound guidance Primary Site: right shoulder Secondary Site: left shoulder Prep: site was prepped using sterile technique Injected: 40 mg of (on each side), with 3 mL of (0.25% ropivacaine) and in the subcromial space Approach Used: posterolateral Procedure: The patient tolerated the procedure well Coding Details: An image of the ultrasound guided injection was taken and saved to the patient's permanent record. - Acromioclavicular with ultrasound guidance (subacromial) Procedure code (CPT) selection complete Results Reviewed Results Reviewed: No imaging is available for review Assessment & Plan Assessment & Plan (1) Rotator cuff dysfunction: Comment: bilateral Code(s): M67.919 - Unspecified disorder of synovium and tendon, unspecified shoulder Category: Medical Plan Patient is status post bilateral subacromial bursa injection. Patient tolerated procedure well and was discharged home in stable condition with discharge instructions. All questions were answered. Follow-up as needed. Scribed for Dr. Covarrubias by Roman Guerrero, medical doctor nuclear medicine, on 12/22/2023. I, Dr. Covarrubias, have personally reviewed and agree with the information entered by the scribe. Coding Level of Care Code Procedure Only Diagnoses Rotator cuff dysfunction M67.919 CPT Codes Coding - Joint 6: 08206 - Acromioclavicular with ultrasound guidance ([id number])
== END 2023-12-22 10:49 | disposition home or self-care (01) ==
PROVIDERS: PCP Internal Medicine; Visit Provider Internal Medicine
DX: M67.911 Unspecified disorder of synovium and tendon, right shoulder (principal); M67.912 Unspecified disorder of synovium and tendon, left shoulder
CPT/HCPCS: 20610

== ENCOUNTER → 2023-12-22 09:28 | Outpatient (BNVA) | payer OTHER, SELFPAY | PROVIDERS: PCP Internal Medicine; Visit Provider Internal Medicine | DX: M67.911 Unspecified disorder of synovium and tendon, right shoulder (principal); M67.912 Unspecified disorder of synovium and tendon, left shoulder | CPT/HCPCS: 20610; J2795; J3301 ==